=== PATIENT | male | born 1985 | race Two or more races ===

== ENCOUNTER 2017-05-07 11:41 | Emergency (ER) | payer BC, OTHER ==
[~2017-05-07] VITALS: Ht 172.7 cm; Wt 81.6 kg
--- NOTE | 2017-05-07 12:21 | NUR ---
MD is at bedside evaluating the patient, respiration:easy, NAD
--- NOTE | 2017-05-07 12:24 | NUR ---
Water provided per patient's request. "OK to have water." per Dr Marie.
--- NOTE | 2017-05-07 12:39 | NUR ---
Patient discharged to home in stable conditon. Written and verbal after care instructions given to patient. Patient verbalizes understanding of instructions.
== END 2017-05-07 12:41 | disposition home or self-care (01) ==
LOC: ER 11:41
DX: K13.21 Leukoplakia of oral mucosa, including tongue (principal); F17.200 Nicotine dependence, unspecified, uncomplicated
CPT/HCPCS: 99283; A4663